=== PATIENT | male | born 1995 | race Caucasian/White ===

== ENCOUNTER → 2020-01-16 | Outpatient (CLI) | payer BC ==
--- NOTE | 2020-01-16 16:24 | Diagnostic Imaging Report ---
INDICATION: Pain. Three views of the right elbow were obtained. FINDINGS: The alignment is normal. There is no fracture or dislocation. There is no joint effusion. Soft tissues are unremarkable. IMPRESSION: No acute radiographic abnormality. Dictated by: Dictated on workstation # [id number]
== END ==
LOC: RAD 15:28
PROVIDERS: ATTEND Nurse Practitioner Family
DX: M25.821 Other specified joint disorders, right elbow (principal)
CPT/HCPCS: 73080